=== PATIENT | male | born 2005 | race Two or more races ===

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

== ENCOUNTER 2023-04-01 00:18 | Emergency (ER) | payer MEDICAID ==
[~2023-04-01] VITALS: Ht 177.8 cm; Wt 71.8 kg
[~2023-04-01 00:18] MED LIST: IBUP-1456 PO
[2023-04-01 00:36] VITALS: BP 136/85
[2023-04-01] MEDS ORDERED: NABU-72 PO (01:58)
[2023-04-01] MEDS ORDERED: METH-1181 PO (01:58)
[2023-04-01 02:46] VITALS: PULSE 98; RESP 14; O2SAT 98
== END 2023-04-01 02:47 | disposition home or self-care (01) ==
LOC: ER 00:18
DX: S29.012A Strain of muscle and tendon of back wall of thorax, initial encounter (principal); F41.9 Anxiety disorder, unspecified; Z79.899 Other long term (current) drug therapy; X50.0XXA Overexertion from strenuous movement or load, initial encounter; Y93.89 Activity, other specified; Y92.89 Other specified places as the place of occurrence of the external cause; Y99.8 Other external cause status
CPT/HCPCS: 72040; 73030

== ENCOUNTER 2024-03-28 03:53 | Emergency (ER) | payer MEDICAID ==
[~2024-03-28] VITALS: Ht 175.3 cm; Wt 62.0 kg
[~2024-03-28 03:53] MED LIST changes: +METH-1181 PO; +NABU-72 PO
[2024-03-28 04:36] VITALS: BP 123/58; PULSE 84; RESP 20; TEMP 98.3; O2SAT 96
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
== END 2024-03-28 05:39 | disposition home or self-care (01) ==
LOC: ER 03:53
DX: R05.9 Cough, unspecified (principal); X00.0XXA Exposure to flames in uncontrolled fire in building or structure, initial encounter; Y93.89 Activity, other specified; Y92.89 Other specified places as the place of occurrence of the external cause; Y99.8 Other external cause status
CPT/HCPCS: 71046